=== PATIENT | male | born 1955 | race Caucasian/White ===

== ENCOUNTER 2019-08-19 12:23 | Emergency (ER) | payer MEDICAID ==
[~2019-08-19] VITALS: Ht 170.2 cm; Wt 90.0 kg
[2019-08-19] MEDS ORDERED: FOLIC ACID 1 MG, THIAMINE HCL 100 MG, MVI, ADULT NO.1 10 ML in DEXTROSE 5% WATER 1,000 ML IV ONE ×4 (13:00)
[2019-08-19] MEDS ORDERED: ONDANSETRON HCL 4MG/2ML INJ IV ONE (13:00)
[2019-08-19] MEDS ORDERED: THIAMINE HCL 100 MG/1 ML 2ML VIAL ONE (13:13)
[2019-08-19 18:24] VITALS: BP 110/60
== END 2019-08-19 18:25 | disposition left against medical advice (07) ==
LOC: ER 12:37
DX: T51.0X1A Toxic effect of ethanol, accidental (unintentional), initial encounter (principal); G92 Toxic encephalopathy; Z85.038 Personal history of other malignant neoplasm of large intestine; Y92.488 Other paved roadways as the place of occurrence of the external cause
CPT/HCPCS: 70450; 96365; 96375; 99285; J2405; J3411; J3490; J7070

== ENCOUNTER 2019-08-25 13:06 | Emergency (ER) | payer MEDICAID ==
[~2019-08-25] VITALS: Ht 167.6 cm; Wt 64.0 kg
[2019-08-25 15:00] VITALS: BP 93/61
== END 2019-08-25 16:18 | disposition home or self-care (01) ==
LOC: EDBD 13:06 → ER 13:29
DX: F10.129 Alcohol abuse with intoxication, unspecified (principal); Y90.0 Blood alcohol level of less than 20 mg/100 ml
CPT/HCPCS: 99283